=== PATIENT | female | born 1955 | race Caucasian/White ===

== ENCOUNTER 2020-11-05 15:02 | Emergency (ER) | payer OTHER, SELFPAY ==
--- NOTE | ~2020-11-05 | XR_ITS ---
EXAMINATION: XR chest 2V DATE: 11/05/2020 15:49 INDICATION: Shortness of breath. TECHNIQUE: Frontal and lateral views of the chest were obtained. COMPARISON: Chest 2 views 09/15/2019 FINDINGS: There is mild scarring at the lung apices. No pleural effusion or pneumothorax. The heart s ize is normal. Breast implants are noted. IMPRESSION: 1. Mild scarring at the lung apices. Reviewed, dictated and finalized at location A. [place] [employer]
[2020-11-05 15:12] VITALS: BP 139/85; PULSE 82; RESP 16; TEMP 36.8; O2SAT 100
--- NOTE | 2020-11-05 16:13 | ED.GENADULT ---
HPI - General Adult General Chief complaint: Upper Respiratory Infection Stated complaint: Trouble Breathing Time Seen by Provider: 11/05/20 15:23 Source: patient and RN notes reviewed Mode of arrival: ambulatory Limitations: no limitations History of Present Illness HPI narrative: Patient presents today complaining of shortness of breath and productive cough with chest congestion x3 days, sweats in the morning, and sore throat that started this morning. Denies nasal congestion, rhinorrhea, ear pain. Patient went through [facility] drive-through yesterday and had a Covid swab done. The results will not be back until tomorrow. She took a dose of [id number]-[id number] sinus pills today and has been using her inhaler as well as taking her vitamins. States she possibly has COPD, but has not been able to get in for PFTs yet. History of pneumonia x3. MD complaint: Cough, shortness of breath. Related Data Home Medications Medication Instructions Recorded Confirmed Multivitamin Women 50 Plus 1 tab-cap PO DAILY 09/15/19 09/15/19 alprazolam 0.5 mg PO BID PRN 09/15/19 09/15/19 estradiol 0.5 mg PO QPM 09/15/19 09/15/19 ibuprofen 800 mg PO PRN PRN 09/15/19 09/15/19 loratadine 10 mg PO DAILY 09/15/19 09/15/19 omega 8-mpp-wsx-fish oil [Fish Oil] 1 cap PO DAILY 09/15/19 09/15/19 tramadol 50 mg PO QID PRN 09/15/19 09/15/19 vitamin E 400 unit PO DAILY 09/15/19 09/15/19 vitamins A,C,K-demu-wlxqme 1 tablet PO BID 09/15/19 09/15/19 [PreserVision AREDS] Allergies Allergy/AdvReac Type Severity Reaction Status Date / Time No Known Allergies Allergy Unverified 12/18/17 15:04 Review of Systems Review of Systems: Narrative: CONSTITUTIONAL: Denies body aches, fever, chills. + Sweats EYES: Denies visual changes, redness, or discharge. ENT: Denies rhinorrhea, congestion, or otalgia. + Sore throat CARDIOVASCULAR: Denies chest pain, palpitations, or edema. RESPIRATORY: + Cough, shortness of breath, chest congestion GASTROINTESTINAL: Denies abdominal pain, nausea, vomiting, or diarrhea. GENITOURINARY: Denies dysuria or hematuria. SKIN: Denies rash, itching, or wounds. MUSCULOSKELETAL: Denies back pain, joint pain, or myalgia. NEUROLOGIC: Denies headache, numbness, tingling, or weakness. PSYCH: Denies depression or anxiety. [facility] Past Medical History Medical History (Updated 11/05/20 @ 16:21 by Radha Valdez, [facility], ) Healthy female adult Surgical History Surgical History (Updated 11/05/20 @ 16:16 by Radha Valdez, [facility], ) History of hysterectomy Hx of breast augmentation Hx of tonsillectomy Social History Social History (Updated 09/15/19 @ 14:40 by Richard Yancey) Smoking status: Current every day smoker Comments At time of signature, I have reviewed and agree with nursing past medical, surgical, social and family history unless otherwise noted. Please see nursing chart for further information. There is no relevant family history pertinent to the presenting complaint Exam Narrative: Exam Narrative: GENERAL: Well-appearing, well-nourished, and in no acute distress. HEAD: Normocephalic, atraumatic. EYES: EOMI. No redness or drainage. Conjunctivae normal. ENT: Mucous membranes pink and moist. Nares clear. No rhinorrhea. TMs normal bilaterally. Throat erythematous without edema or exudate. Tonsils absent. Uvula midline. NECK: Normal AROM. Supple. No lymphadenopathy. CHEST: No respiratory distress. Clear to auscultation. HEART: Regular rate and rhythm. No murmur appreciated. Normal peripheral pulses. EXTREMITIES: Normal range of motion. No edema. SKIN: Warm, dry, no rash. Capillary refill normal. Normal skin turgor. NEURO: No focal deficits. Alert and oriented x3. Gait steady. PSYCH: Normal affect. No signs of depression or anxiety. Course Vital Signs Vital signs: Vital Signs Temperature 98.2 F 11/05/20 15:12 Pulse Rate 82 11/05/20 15:12 Respiratory Rate 16 11/05/20 15:12 Blood Pressure 139/8
== END 2020-11-05 16:42 | disposition home or self-care (01) ==
PROVIDERS: Emergency Provider Nurse Practitioner
DX: J40 Bronchitis, not specified as acute or chronic (principal)
CPT/HCPCS: 71046; 87081; 87880; 99213; G0463

== ENCOUNTER 2020-12-25 11:52 | Emergency (ER) | payer OTHER, SELFPAY ==
[2020-12-25 12:13] VITALS: BP 135/58; PULSE 112; RESP 20; TEMP 35.7; O2SAT 100
--- NOTE | 2020-12-25 12:37 | ED.SKABFB ---
HPI - Skin/Abscess/Foreign Bdy General Chief complaint: Skin/Abscess/Foreign Body Stated complaint: Insect Bite Time Seen by Provider: 12/25/20 12:30 Source: patient, RN notes reviewed and old records reviewed Mode of arrival: ambulatory Limitations: no limitations History of Present Illness HPI narrative: 65 year old female who presents to [facility] care with complaints of putting on a Hooded sweatshirt on Sunday and felt a bite to her wrist and thinks that she was bit by a spider. Patient states that she has cleansed the area with peroxide and alcohol and has been putting Neosporin ointment on wound to her left lateral wrist area. Patient has scabbed area with mild surrounding redness to left lateral wrist area, no drainage is present from wound or induration of tissue. Patient states that she has had tactile fevers and has been having chills and sweats, patient is afebrile at this time. MD complaint: insect bite/sting and abscess/boil Onset (ago): day(s) (4) Tetanus up to date: yes Location: LUE (lateral wrist) Severity: mild Severity scale (1-10): 3 Quality: burning and aching Pain Consistency: constant Relieving factors: none Exacerbating factors: palpation Context: other (felt a bite) Associated symptoms: chills (and sweats states tactile fevers) Treatments prior to arrival: OTC topical medication Related Data Home Medications Medication Instructions Recorded Confirmed Multivitamin Women 50 Plus 1 tab-cap PO DAILY 09/15/19 09/15/19 alprazolam 0.5 mg PO BID PRN 09/15/19 09/15/19 estradiol 0.5 mg PO QPM 09/15/19 09/15/19 ibuprofen 800 mg PO PRN PRN 09/15/19 09/15/19 loratadine 10 mg PO DAILY 09/15/19 09/15/19 omega 5-vzx-vdt-fish oil [Fish Oil] 1 cap PO DAILY 09/15/19 09/15/19 tramadol 50 mg PO QID PRN 09/15/19 09/15/19 vitamin E 400 unit PO DAILY 09/15/19 09/15/19 vitamins A,C,A-zrqj-cesjkm 1 tablet PO BID 09/15/19 09/15/19 [PreserVision AREDS] Allergies Allergy/AdvReac Type Severity Reaction Status Date / Time No Known Allergies Allergy Unverified 12/18/17 15:04 Review of Systems Review of Systems: Narrative: CONSTITUTIONAL: Reports tactile fever, chills, or sweats. EYES: Denies visual changes, redness, or discharge. ENT: Denies rhinorrhea, congestion, sore throat, feels like fluid on left ear taking OTC Sudafed CARDIOVASCULAR: Denies chest pain, palpitations, or edema. RESPIRATORY: Denies cough or dyspnea. GASTROINTESTINAL: Denies abdominal pain, nausea, vomiting, or diarrhea. GENITOURINARY: Denies dysuria or hematuria. SKIN: Denies rash or itching, positive for 0.5cm scabbed area with surrounding redness to left lateral wrist. MUSCULOSKELETAL: Denies back pain, joint pain, or myalgia. NEUROLOGIC: Denies headache, numbness, or weakness. PSYCHIATRIC: positive anxiety or depression. All systems reviewed & are unremarkable except as noted in HPI and below PMFSH Past Medical History Medical History (Updated 12/25/20 @ 13:10 by Miryam Ovalle NP) Anxiety Healthy female adult Surgical History Surgical History History of hysterectomy Hx of breast augmentation Hx of tonsillectomy Family History Family History (Updated 12/25/20 @ 13:11 by Miryam Ovalle NP) Other No significant family history Social History Social History (Updated 12/25/20 @ 13:10 by Miryam Ovalle NP) Smoking status: Current every day smoker Alcohol intake: current Alcohol use details: social Substance use: never Gender identity (if verbalized by the patient): Female Comments At time of signature, agree with nursing past medical, surgical, social and family history. There is no relevant family history pertinent to the presenting complaint Exam Narrative: Exam Narrative: GENERAL: Well-appearing, well-nourished, and in no acute distress. HEAD: Normocephalic, atraumatic. EYES: PERRLA and EOMI. ENT: Nares clear, no rhinorrhea or epistaxis. Mucous
== END 2020-12-25 12:59 | disposition home or self-care (01) ==
PROVIDERS: Emergency Provider Registered Nurse; PCP Internal Medicine
DX: L02.414 Cutaneous abscess of left upper limb (principal); F17.200 Nicotine dependence, unspecified, uncomplicated; F41.9 Anxiety disorder, unspecified
CPT/HCPCS: 99213; G0463

== ENCOUNTER 2022-08-07 15:38 | Emergency (ER) | payer MEDICARE, SELFPAY ==
--- NOTE | ~2022-08-07 | XR_ITS ---
XR chest 2V 08/07/2022 17:06 Indication: Chest tightness. Dizziness. Shortness of breath. Procedure: 2 view chest Comparison: 11/05/2020 Findings: Heart size normal. No focal air space disease, pulmonary edema, pleural effusion or suspect ed pneumothorax. There are bilateral breast implants. The lungs are hyperinflated which is consistent with, but not diagnostic of chronic obstructive pulmonary disease. There is chronic apical pleural t hickening/scarring. Impression: 1: No acute cardiopulmonary disease. Reviewed, dictated and finalized at location A. B RN Impression: 1: No acute cardiopulmonary disease.
--- NOTE | 2022-08-07 15:39 | ECG_ITS ---
Measurements Intervals [place] Rate: 93 P: 75 MD: 167 QRS: 20 QRSD: 82 T: 62 QT: 314 QTc: 392 Interpretive Statements SINUS RHYTHM WITH SINUS ARRHYTHMIA POSSIBLE LEFT ATRIAL ENLARGEMENT ANTEROSEPTAL INFARCT, AGE INDETERMINATE BASELINE ARTIFACT- I, AVL ABNORMAL ECG COMPARED TO ECG 09/15/2019 14:27:35 SINUS ARRHYTHMIA NOW PRESENT Electronically Signed On 08-07-2022 17:49:59 PHOTOGRAPHIC DEVELOPER AND PRINTER by Gerber Styles D.O.
[2022-08-07 16:34] VITALS: BP 144/114; PULSE 124; RESP 18; TEMP 36.6; O2SAT 100
[2022-08-07 17:06] LABS: Basophils Absolute Auto 0.1 K/mm3 (0.0-0.1); Basophils Percent Auto 1.5 % (0.2-1.2); Eosinophils Absolute Auto 0.1 K/mm3 (0-0.3); Eosinophils Percent Auto 1.7 % (0-4.4); Hematocrit 37.8 % (37.0-47.0); Hemoglobin 12.8 g/dL (12.0-15.0); Immature Granulocyte Absolute 0.03 K/mm3 (0.00-0.031); Immature Granulocyte Percent A 0.4 % (0-0.5); Lymphocytes Absolute Auto 2.79 K/mm3 (0.9-3.2); Lymphocytes Percent Auto 34.1 % (18.3-44.2); Mean Corpuscular HGB Conc 33.9 g/dl (32-36); Mean Corpuscular Hemoglobin 31.1 pg (26-34); Mean Corpuscular Volume 91.7 fl (80-100); Mean Platelet Volume 8.9 fl (7.4-10.4); Monocytes Absolute Auto 0.5 K/mm3 (0.1-0.6); Monocytes Percent Auto 6.6 % (2.6-8.5); Neutrophils Absolute Auto 4.6 K/mm3 (1.3-6.7); Neutrophils Percent Auto 55.7 % (45.5-73.1); Platelet Count Result 366 k/mm3 (150-375); Red Blood Count 4.12 M/mm3 (4.2-5.4); Red Cell Distribution Width 12.6 % (11.5-14.5); White Blood Count 8.2 K/mm3 (4.5-10.0)
[2022-08-07 17:17] LABS: Prothrombin Time 12.8 Seconds (11.1-14.7)
[2022-08-07 17:18] LABS: Partial Thromboplastin Time 31.7 SECONDS (22.3-36.8)
[2022-08-07 17:22] LABS: Alanine Aminotransferase 29 U/L (6-35); Albumin Level 4.6 g/dL (3.5-5.1); Alkaline Phosphatase 87 U/L (38-126); Anion Gap 8 mmol/L (8-16); Aspartate Amino Transferase 37 U/L (14-36); Bilirubin,Total 0.6 mg/dL (0.2-1.3); Blood Urea Nitrogen 15 mg/dL (7-17); Calcium 9.9 mg/dL (8.4-10.2); Carbon Dioxide 24 mmol/L (22-30); Chloride 99 mmol/L (98-107); Estimated CRCL calculation 66 ml/min; Estimated Glomerular Filt Rate > 60; Glucose 84 mg/dL (65-110); Lipase 39 U/L (23-300); Potassium 3.7 mmol/L (3.4-5.0); Sodium 131 mmol/L (137-145)
[2022-08-07 17:30] LABS: Appearance Urine Clear (Clear); Bilirubin Urine Negative (Negative); Blood Urine Trace-intact (Negative); Color Urine Yellow (Yellow); Glucose Urine UA Negative (Negative); Ketones Urine Negative (Negative); Leukocyte Esterase Ur Negative LEU/UL (Negative); Nitrate Urine Negative (Negative); Protein Urine Negative (Negative); Urobilinogen Urine 0.2 mg/dL (<2.0)
[2022-08-07 17:32] LABS: Troponin I < 0.012 ng/mL (0.000-0.034)
[2022-08-07 17:36] LABS: Mucus Urine Rare /lpf; Squamous Epithelial Cell Urine Rare /hpf (Few); WBC Urine 0-3 /hpf
[2022-08-07 17:49] LABS: Add Urine Microscopic? YES
--- NOTE | 2022-08-07 19:15 | PC.NURSE ---
pt left d/t wait time
== END 2022-08-07 19:56 | disposition left against medical advice (07) ==
LOC: ANHED 19:20
PROVIDERS: Family Medicine; Emergency Provider Emergency Medicine; PCP Internal Medicine
DX: R06.02 Shortness of breath (principal)
CPT/HCPCS: 36415; 71046; 80053; 81001; 81025; 83690; 84484; 85025; 85610; 85730; 93005; 99199